=== PATIENT | male | born 1960 | race Caucasian/White ===

== ENCOUNTER 2020-04-02 13:01 | Emergency (ER) | payer MEDICARE ==
[~2020-04-02] VITALS: Ht 190.5 cm; Wt 102.1 kg
[2020-04-02 13:36] LABS: HEMATOCRIT 31.4 % (42.0-52.0); HEMOGLOBIN 10.2 gm/dL (14.0-18.0); MCH 25.9 pg (26.0-34.0); MCHC 32.5 g/dL (28.0-37.0); MCV 79.7 fL (80.0-100.0); NUCLEATED RBCS 0 /100WBC; PLATELET COUNT* 317 thou/uL (150-400); RBC 3.94 mil/uL (4.50-6.00); RDW-CV 20.1 % (10.5-14.5); WBC 12.8 thou/uL (4.0-11.0)
[2020-04-02] MEDS ORDERED: TYLENOL325 MG PO (13:40)
[2020-04-02] MEDS ORDERED: LIPITOR40 MG PO (13:40)
[2020-04-02] MEDS ORDERED: ACYCLOVIR 400400 MG PO (13:40)
[2020-04-02] MEDS ORDERED: ELIQUIS5 M1 PO (13:40)
[2020-04-02] MEDS ORDERED: BACLOFEN5 MG PO (13:43)
[2020-04-02 13:47] LABS: APTT 25.9 Seconds (25.0-31.3); INR 1.2
[2020-04-02] MEDS ORDERED: CLOBETASOL EMOL15 GM TOP (13:48)
[2020-04-02 13:49] LABS: CALCIUM 8.5 mg/dL (8.5-10.1); CREATININE 0.8 mg/dL (0.6-1.3); POTASSIUM 3.5 mmol/L (3.5-5.1)
[2020-04-02] MEDS ORDERED: VIBRAMYCIN 100100 MG PO (13:49)
[2020-04-02] MEDS ORDERED: DEXAMETHASONE 44 M1 PO (13:49)
[2020-04-02] MEDS ORDERED: DULCOLAX STOOL100 M1 PO (13:49)
[2020-04-02] MEDS ORDERED: FLUTICASONE PRO30 G1 TOP (13:50)
[2020-04-02] MEDS ORDERED: VITAMIN D250 MCG PO (13:50)
[2020-04-02] MEDS ORDERED: FENTANYL1 EACH TOP (13:50)
[2020-04-02] MEDS ORDERED: NIZORAL A-D125 ML TOP (13:51)
[2020-04-02] MEDS ORDERED: ZYVOX600 MG PO (13:51)
[2020-04-02] MEDS ORDERED: FUROSEMIDE 20 M20 MG PO (13:51)
[2020-04-02] MEDS ORDERED: TOPROL XL100 MG PO (13:52)
[2020-04-02] MEDS ORDERED: NARCAN4 MG NARES (13:52)
[2020-04-02] MEDS ORDERED: ONDANSETRON ODT8 MG PO (13:52)
[2020-04-02] MEDS ORDERED: SINGULAIR 10 MG10 MG PO (13:52)
[2020-04-02] MEDS ORDERED: NITROSTAT0.4 M1 SUBLING (13:52)
[2020-04-02] MEDS ORDERED: TRANSDERM-SCOP1 EACH TRANSDERM (13:53)
[2020-04-02] MEDS ORDERED: BACTRIM DS TAB1 EAC1 PO (13:53)
[2020-04-02] MEDS ORDERED: POMALYST4 MG PO (13:53)
[2020-04-02] MEDS ORDERED: TERBINAFINE HC250 MG PO (13:54)
[2020-04-02] MEDS ORDERED: MORPHINE 1100 MG/101 IV (13:54)
[2020-04-02] MEDS ORDERED: VENTOLIN HFA 1818 GM INH (13:54)
[2020-04-02 14:00] LABS: ALBUMIN 3.5 g/dL (3.4-5.0); TOTAL BILIRUBIN 0.9 mg/dL (<0.1-1.0); TOTAL PROTEIN 6.7 g/dL (6.4-8.2)
[2020-04-02 14:16] LABS: ABSOLUTE LYMPHOCYTES 0.4 thou/uL (0.8-5.3); ABSOLUTE MONOCYTES 0.3 thou/uL (0.0-1.2); ABSOLUTE NEUTROPHILS 12.2 thou/uL (1.6-8.1); PLATELET ESTIMATE ADEQUATE
[2020-04-02 15:02] LABS: URINE BILIRUBIN NEGATIVE (Negative); URINE BLOOD NEGATIVE (Negative); URINE CLARITY CLEAR; URINE COLOR YELLOW; URINE GLUCOSE-RANDOM NEGATIVE (Negative); URINE KETONES NEGATIVE (Negative); URINE LEUKOCYTES-REFLEX NEGATIVE (Negative); URINE NITRITE-REFLEX NEGATIVE (Negative); URINE PROTEIN NEGATIVE (Negative); URINE UROBILINOGEN 0.2 E.U./dl (0.2-1.0)
[2020-04-02 15:59] LABS: AMP/METHAMP Negative (Negative); BARBITURATES Negative (Negative); BENZODIAZEPINES Negative (Negative); COCAINE Negative (Negative); METHADONE Negative (Negative); OPIATES POSITIVE (Negative); PCP Negative (Negative); THC Negative (Negative)
[2020-04-02 17:40] VITALS: BP 156/98
--- NOTE | 2020-04-02 17:56 | EKG ---
[place] [address] ELECTROCARDIOGRAM REPORT Name: NURY WOODALL Room: [facility]#: [id number] Admission: 04/02/20 Attend Phys: Discharge: 04/02/20 Date of : 58 Date of Service: 04/02/20 1305 Report #: [id number] THIS REPORT FOR: //name// [facility] ED Test Date: 2020-04-02 Test Time: 13:05:14 Pat Name: NURY WOODALL Department: Room: Gender: Independent Driver: : 1960 Requested By: Mariana Horner Order Number: [id number] MD: Jason Chew Measurements Intervals [place] Rate: 84 P: MO: QRS: -38 QRSD: 92 T: 23 QT: 424 QTc: 502 Interpretive Statements Atrial fibrillation RSR' in V1 or V2, right VCD or RVH Inferior infarct, old, possible Prolonged QT interval Baseline wander in lead(s) II,III,aVF No previous ECG available for comparison Electronically Signed On 04-02-2020 17:56:44 CDT by Jason Chew [email or web address] <ELECTRONICALLY SIGNED> By: Jason Chew MD, FACC 04/02/20 1756 1305 1305 Jason Chew MD, FACC /EPI
== END 2020-04-02 17:45 | disposition short-term general hospital (02) ==
LOC: M.ERS 13:01
PROVIDERS: Personal Emergency Response Attendant
DX: C90.00 Multiple myeloma not having achieved remission (principal); G89.29 Other chronic pain; M54.9 Dorsalgia, unspecified; Z20.828 Contact with and (suspected) exposure to other viral communicable diseases; I48.91 Unspecified atrial fibrillation; Z90.89 Acquired absence of other organs; Z96.611 Presence of right artificial shoulder joint; Z79.899 Other long term (current) drug therapy; Z96.659 Presence of unspecified artificial knee joint